=== PATIENT | male | born 1950 | race Two or more races ===

== ENCOUNTER 2017-05-29 08:38 | Emergency (ER) | payer OTHER ==
[~2017-05-29] VITALS: Ht 172.7 cm; Wt 84.8 kg
[2017-05-29] MEDS ORDERED: GLIMEPIRIDE2 MG (08:50)
[2017-05-29] MEDS ORDERED: LOSARTAN-HCTZ1 EACH ×2 (08:50→08:52)
[2017-05-29] MEDS ORDERED: TAMS0.4C (08:51)
[2017-05-29] MEDS ORDERED: RISPERIDONE3 MG (08:51)
[2017-05-29] MEDS ORDERED: ATORVASTATIN CA40 MG (08:51)
[2017-05-29] MEDS ORDERED: VITAMIN B-122500 MCG (08:52)
[2017-05-29] MEDS ORDERED: ARICEPT10 MG (08:53)
[2017-05-29] MEDS ORDERED: NEURONTIN300 MG (08:53)
== END 2017-05-29 14:49 | disposition home or self-care (01) ==
LOC: ER 08:38
DX: R41.0 Disorientation, unspecified (principal); J11.1 Influenza due to unidentified influenza virus with other respiratory manifestations

== ENCOUNTER 2019-04-01 21:24 | Emergency (ER) | payer OTHER ==
[~2019-04-01] VITALS: Ht 170.2 cm; Wt 72.6 kg
[~2019-04-01 21:24] MED LIST: ARICEPT10 MG; ATORVASTATIN CA40 MG; GLIMEPIRIDE2 MG; LOSARTAN-HCTZ1 EACH; NEURONTIN300 MG; RISPERIDONE3 MG; TAMS0.4C; VITAMIN B-122500 MCG
== END 2019-04-02 11:41 | disposition home or self-care (01) ==
LOC: ER 21:24
DX: E11.65 Type 2 diabetes mellitus with hyperglycemia (principal)

== ENCOUNTER 2021-02-08 09:20 | Inpatient (IN) | payer OTHER ==
[~2021-02-08] VITALS: Ht 167.6 cm; Wt 82.1 kg
[2021-02-08] MEDS ORDERED: HYZAAR 100-12.1 EACH PO (09:42)
[2021-02-08] MEDS ORDERED: GLIPIZIDE XL10 MG PO (09:42)
== END 2021-02-11 15:31 | disposition home or self-care (01) | DRG 65 ==
LOC: ER 09:20 → MEDI 18:37
PROVIDERS: ADMIT Internal Medicine; ATTEND Internal Medicine
PROC: B020ZZZ Computerized Tomography (CT Scan) of Brain (ICD-10-PCS; principal; 2021-02-08)
PROC: B345ZZZ Ultrasonography of Bilateral Common Carotid Arteries (ICD-10-PCS; 2021-02-08)
PROC: B24BYZZ Ultrasonography of Heart with Aorta using Other Contrast (ICD-10-PCS; 2021-02-08)
PROC: B030ZZZ Magnetic Resonance Imaging (MRI) of Brain (ICD-10-PCS; 2021-02-09)
DX: I63.9 Cerebral infarction, unspecified (principal); G91.8 Other hydrocephalus; R25.8 Other abnormal involuntary movements; G93.89 Other specified disorders of brain; I10 Essential (primary) hypertension; E11.9 Type 2 diabetes mellitus without complications; E78.5 Hyperlipidemia, unspecified
CPT/HCPCS: 70544

== ENCOUNTER → 2024-11-16 | Emergency (ER) | payer OTHER ==
[~2024-11-16] VITALS: Ht 160 cm; Wt 83.5 kg
[~2024-11-16] MED LIST changes: +CARBIDOPA25 MG PO; +ECOTRIN81 MG PO; +GLIPIZIDE XL10 MG PO; +HYZAAR 100-12.1 EACH PO; +NAMENDA1 EACH; +QUETIAPINE FUMA25 MG PO; +SINEMET 25-1001 EACH PO; +TAMS0.4C PO
[2024-11-16 15:45] LABS: BASO % 0.5 % (0.1-1.2); EOS # 0.11 (0.04-0.54); EOS % 1.2 % (0.7-7.0); LYMPH # 2.01 (1.18-3.74); LYMPH % 21.9 % (19.3-53.1); MEAN PLATELET VOLUME 10.00 fl (9.4-12.4); MONO # 0.49 (0.24-0.82); MONO % 5.3 % (4.7-12.5); NEUT # 6.47 (1.56-6.13); NEUT % 70.8 % (34.0-71.1); RED CELL DISTRIBUTION WIDTH 14.2 % (11.6-14.4)
[2024-11-16 15:57] LABS: URINE APPEARANCE Clear; URINE BILIRRUBIN Negative (NEGATIVE); URINE BLOOD Negative; URINE COLOR Yellow; URINE GLUCOSE Negative (NEGATIVE); URINE KETONE Trace (NEGATIVE); URINE LEUKOCYTE Negative; URINE NITRATE Negative; URINE PROTEIN Trace (NEGATIVE); URINE UROBILINOGEN 1.0 E.U./dl
[2024-11-16 16:01] LABS: URINE BACTERIA 25.1 uL (0.0-1933); URINE EPITHELIAL CELLS 6.3 uL (0.0-38.8); URINE RBC 4.5 uL (0.0-20.8); URINE WBC 13.2 uL (0.0-23.2)
[2024-11-16 16:22] LABS: URINE CAST 0.73 uL (0.0-1.40); URINE CRYSTALS FEW /HPF; URINE MUCUS MODERATE
[2024-11-16 16:34] LABS: ALT/SGPT 12.0 U/L (12-78); AST/SGOT 20.0 U/L (15-37); BILIRUBIN TOTAL 0.65 mg/dL (0.3-1.2); BILIRUBIN,CONJUGATED 0.19 mg/dL (0.0-0.2); BUN CREA RATIO 16.0 (7.0-25.0); CREATININE SERUM 1.02 mg/dL (0.70-1.30); GFR 71.59; GLOBULINA 4.4 G/DL (2.4-3.5); GLUCOSE FASTING 132.0 mg/dL (65-100); OSMOLALITY SERUM 282.0 MOSM/KG (275-295); PROSTATIC SPECIFIC ANTIGEN 1.98 NG/ML (0.010-4.00)
== END | disposition home or self-care (01) ==
LOC: ER 13:01
PROVIDERS: General Practice
DX: N39.0 Urinary tract infection, site not specified (principal); R35.0 Frequency of micturition; N40.0 Benign prostatic hyperplasia without lower urinary tract symptoms; I10 Essential (primary) hypertension; E11.9 Type 2 diabetes mellitus without complications; Z79.84 Long term (current) use of oral hypoglycemic drugs; Z88.0 Allergy status to penicillin; N20.0 Calculus of kidney; N28.1 Cyst of kidney, acquired; G20.A1 Parkinson's disease without dyskinesia, without mention of fluctuations; F02.80 Dementia in other diseases classified elsewhere, unspecified severity, without behavioral disturbance, psychotic disturbance, mood disturbance, and anxiety